=== PATIENT | female | born 2000 ===

== ENCOUNTER 2021-01-20 15:54 | Emergency (ER) | payer BC ==
--- NOTE | 2021-01-20 17:36 | RAD REPORT ---
EXAM DESCRIPTION: RAD - Forearm Right - 01/20/2021 5:13 pm CLINICAL HISTORY: Right arm pain status post fall FINDINGS: No fracture is seen.
--- NOTE | 2021-01-20 20:12 | ER ---
Nurse's Notes [facility] Name: Mary Anne Darden Age: 20 yrs Sex: Female : 2000 Arrival Date: 01/20/2021 Time: 16:04 Bed 19 Private MD: Diagnosis: Other specified sprain of right wrist Presentation: 01/20 16:41 Chief complaint: Patient states: Slipped on wet wood and landed palm down Right hand vg1 about two hours ago. Pt c/o of Right wrist pain. Pt is unable to move wrist and states it 'hurts too much" to move fingers. Coronavirus screen: Client denies travel out of the [place] in the last 14 days. Ebola Screen: Patient negative for fever greater than or equal to 101.5 degrees Fahrenheit, and additional compatible Ebola Virus Disease symptoms. Initial Sepsis Screen: Does the patient meet any 2 criteria? No. Patient's initial sepsis screen is negative. Does the patient have a suspected source of infection? No. Patient's initial sepsis screen is negative. Risk Assessment: Do you want to hurt yourself or someone else?. Onset of symptoms was January 20, 2021. 16:41 Method Of Arrival: Ambulatory vg1 16:41 Acuity: JENNIFER 4 vg1 Triage Assessment: 16:43 General: Appears in no apparent distress. uncomfortable, Behavior is calm, cooperative. vg1 Pain: Complains of pain in right hand/wrist Pain currently is 7 out of 10 on a pain scale. Musculoskeletal: Swelling present in right hand. 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 - Social history:: Smoking status: Patient denies any tobacco usage or history of. Screenin:03 Abuse screen: Denies threats or abuse. Denies injuries from another. Nutritional bp screening: No deficits noted. Tuberculosis screening: No symptoms or risk factors identified. Fall Risk None identified. Assessment: 19:00 General: SEE TRIAGE NOTE. bp 20:20 Reassessment: Patient and/or family updated on plan of care and expected duration. Pain ea level reassessed. Patient is alert, oriented x 3, equal unlabored respirations, skin warm/dry/pink. Discharge instruction given to patient verbalized the understanding of instruction. Pt left ED ambulatory tolerating well. Vital Signs: 16:41 BP 124 / 70; Pulse 65; Resp 16; Temp 98.1; Pulse Ox 100% ; Weight 83.91 kg; Height 5 vg1 ft. 5 in. (165.10 cm); Pain 7/10; 19:01 BP 119 / 70; Pulse 107; Resp 16; Pulse Ox 100% ; bp 20:15 BP 125 / 68; Pulse 80; Resp 18; Pulse Ox 98% ; ea 16:41 Body Mass Index 30.79 (83.91 kg, 165.10 cm) vg1 ED Course: 16:04 Patient arrived in ED. bp1 16:43 Triage completed. vg1 16:43 Arm band placed on Patient placed in waiting room, Patient notified of wait time. vg1 17:13 XRAY Forearm RIGHT In Process Unspecified. EDMS 18:49 Emilio Valentin PA is PHCP. jmm 18:49 Girma Almanza MD is Attending Physician. jmm 18:59 Aidan Hernandez, RN is Primary Nurse. bp 19:03 Patient has correct armband on for positive identification. Bed in low position. Call bp light in reach. Side rails up X2. Adult w/ patient. 19:54 Mehul wrap to IP of right thumb, MCP of right thumb and CMC of right thumb Orthoglass jb5 splint: Thumb spica splint applied on right forearm. 20:12 Rob Sotelo MD is Referral Physician. jmm 20:19 No provider procedures requiring assistance completed. Patient did not have IV access ea during this emergency room visit. Administered Medications: No medications were administered Outcome: 20:12 Discharge ordered by . jmm 20:19 Discharged to home ambulatory, with family. ea 20:19 Condition: stable 20:19 Discharge instructions given to patient, Instructed on discharge instructions, follow up and referral plans. Demonstrated understanding of instructions, follow-up care. 20:21 Patient left the ED. ea Signatures: Dispatcher Diabeto EDEmilio Rodriguez PA PA jmm Broussard, Jennifer jb5 Evy Browning RN Aidan Mccoy ea, RN RN Kelly Alberts RN RN vg1 Yennifer Spears bp1
--- NOTE | 2021-01-20 20:12 | EDPHYS ---
Physician Documentation [facility] Name: Mary Anne Darden Age: 20 yrs Sex: Female : 2000 Arrival Date: 01/20/2021 Time: 16:04 Bed 19 Private MD: ED Physician Girma Almanza HPI: 01/20 16:50 This 20 yrs old Female presents to ER via Ambulatory with complaints of Wrist Injury. jmm 16:50 The patient or guardian reports injury, pain. Onset: The symptoms/episode jmm began/occurred acutely. Modifying factors: The symptoms are alleviated by nothing, the symptoms are aggravated by nothing. Associated signs and symptoms: Pertinent negatives: decreased sensation distally, numbness distally, vomiting. This is a 20 year old female with a history of anxiety that presents to the ED with complaints of right wrist pain after falling from a standing position. Denies other injury. . 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 - Social history:: Smoking status: Patient denies any tobacco usage or history of. ROS: 16:50 Constitutional: Negative for fever, chills, and weight loss, Cardiovascular: Negative jmm for chest pain, palpitations, and edema, Respiratory: Negative for shortness of breath, cough, wheezing, and pleuritic chest pain. 16:50 MS/extremity: Positive for injury or acute deformity, pain. 16:50 All other systems are negative. Exam: 16:50 Constitutional: This is a well developed, well nourished patient who is awake, alert, jmm and in no acute distress. Head/Face: atraumatic. Eyes: EOMI, no conjunctival erythema appreciated ENT: Moist Mucus Membranes Neck: Trachea midline, Supple Chest/axilla: Normal chest wall appearance and motion. Cardiovascular: Regular rate and rhythm. No edema appreciated Respiratory: Normal respirations, no respiratory distress appreciated Abdomen/GI: Non distended, soft Back: Normal ROM Skin: General appearance color normal 16:50 Neuro: Awake and alert, normal gait Psych: Behavior is normal, Mood is normal, Patient is cooperative and pleasant 16:50 Musculoskeletal/extremity: ROM: intact in all extremities, (+) snuff box tenderness, compartments are soft, full radial pulse, NVI. Vital Signs: 16:41 BP 124 / 70; Pulse 65; Resp 16; Temp 98.1; Pulse Ox 100% ; Weight 83.91 kg; Height 5 vg1 ft. 5 in. (165.10 cm); Pain 7/10; 19:01 BP 119 / 70; Pulse 107; Resp 16; Pulse Ox 100% ; bp 20:15 BP 125 / 68; Pulse 80; Resp 18; Pulse Ox 98% ; ea 16:41 Body Mass Index 30.79 (83.91 kg, 165.10 cm) vg1 MDM: 16:50 Data reviewed: vital signs, nurses notes. Counseling: I had a detailed discussion with haily the patient and/or guardian regarding: the historical points, exam findings, and any diagnostic results supporting the discharge/admit diagnosis, radiology results, the need for outpatient follow up, to return to the emergency department if symptoms worsen or persist or if there are any questions or concerns that arise at home. ED course: Xray negative. Patient put in thumb spica. . 19:17 Patient medically screened. [facility] 01/20 16:49 Order name: XRAY Forearm RIGHT; Complete Time: 19:06 ss 01/20 19:17 Order name: Thumb Spica Splint; Complete Time: 19:[address] [facility] Administered Medications: No medications were administered Disposition Summary: 01/20/21 20:12 Discharge Ordered Location: Home [facility] Condition: Stable [facility] Diagnosis - Other specified sprain of right wrist [facility] Followup: [facility] - With: Rob Sotelo MD - When: 2 - 3 days - Reason: Recheck today's complaints, Continuance of care, Re-evaluation by your physician Discharge Instructions: - Discharge Summary Sheet [facility] - Scaphoid Fracture [facility] - Wrist Sprain, Adult [facility] Forms: - Medication Reconciliation Form [facility] - Thank You Letter [facility] - Antibiotic Education [facility] - Prescription Opioid Use [facility] Addendum: 01/23/2021 07:36 Co-signature as Attending Physician, Girma Almanza MD I agree with the assessment and k dr plan of care. Signatures: Dispatcher [employer] EDGirma Christine MD MD kdr Mickail, Joel, PA PA jmm Garcia, Victoria, RN RN vg1 Corrections: (The following items were deleted from the chart) 01/20 17:12 16:50 Wrist Right 3 View+RAD.RAD.BRZ ordered. EDMS EDMS
[2021-01-20 20:26] VITALS: TEMP 98.1
[2021-01-20 20:29] VITALS: BP 125/68; O2SAT 98
== END 2021-01-20 20:21 | disposition home or self-care (01) ==
LOC: ER 15:54
DX: S63.591A Other specified sprain of right wrist, initial encounter (principal); W18.30XA Fall on same level, unspecified, initial encounter; F41.8 Other specified anxiety disorders
CPT/HCPCS: 99283